=== PATIENT | male | born 1990 | race Caucasian/White ===

== ENCOUNTER 2017-07-06 18:57 | Emergency (ER) | payer MEDICAID, OTHER ==
[2017-07-06 19:03] VITALS: TEMP 97.9
[2017-07-06] MEDS ORDERED: NS 1,000 ML IV ONE (20:00)
--- NOTE | 2017-07-06 20:00 | EDPHY ---
H & P Time Seen by Provider: 07/06/17 19:23 HPI/ROS: CHIEF COMPLAINT: Alcohol intoxication HISTORY OF PRESENT ILLNESS: 26-year-old male presents emergency department via EMS. History is that he went to an AA meeting tonight intoxicated. EMS was called and transported the patient here. He can give me very little history. He told the nursing staff that his sister is in the ICU and that is why he is intoxicated tonight. He denies drug use. Denies any trauma. Reports nausea. Vomiting during the exam. REVIEW OF SYSTEMS: Complete review of systems is unobtainable from this patient because of alcohol intoxication. Patient denies any pain. Denies trauma. PAST MEDICAL HISTORY: Alcohol intoxication, history of MR . Bicuspid heart valve SOCIAL HISTORY: Smoker VITAL SIGNS: see nurse's notes. Noted to be hypoxic to the upper 70s when sleeping. GENERAL: Well-developed, well-nourished, arouses to voice. Able answer some simple questions. States "I don't know why I a here". HEENT: Normal, PERRL, 7mm bilaterally, EOMI, + nystagmus. No discharge or icterus, moist mucous membranes. Neck: supple, FROM. LUNGS: Clear to auscultation bilaterally, no wheezes, rhonchi or rales. CARDIAC: Regular rate and rhythm, no rubs, murmurs or gallops. ABDOMEN: Soft, nontender, nondistended, bowel sounds normal. BACK: No CVA tenderness. No vertebral tenderness. EXTREMITIES: No edema, FROM. NEURO: Somnolent but arousable. Grossly nonfocal exam. SKIN: Warm and dry, no rash. Smoking Status: Light smoker Constitutional: Initial Vital Signs Temperature (C) 36.6 C 07/06/17 19:00 Heart Rate 101 H 07/06/17 19:00 Respiratory Rate 20 07/06/17 19:00 Blood Pressure 148/105 H 07/06/17 19:00 O2 Sat (%) 99 07/06/17 19:00 O2 Delivery Mode Room Air Allergies/Adverse Reactions: tree nut [Nuts] Allergy (Severe, Verified 02/24/16 19:24) Anaphylaxis Home Medications: Medication Instructions Recorded Naltrexone HCl [Revia] 50 mg PO HS 01/17/16 buPROPion SR [Wellbutrin 150mg SR 150 mg PO DAILY 01/17/16 (*)] traZODone [traZODONE 50MG (*)] 50 mg PO HS PRN 01/17/16 Ibuprofen [Motrin (*)] 400 mg PO Q4 PRN #0 tab 01/19/16 Doxycycline Hyclate 100 mg PO BID #20 tab 02/22/16 Medical Decision Making ED Course/Re-evaluation: IV was placed and patient received normal saline as well as Zofran. Alcohol level is 372. Patient continued to sober while in the emergency department. He was re-evaluated at 10:30 p.m.: Patient is sleeping, no longer O2 dependent. Sats on room air 96%. Will continue to sober with the plan to discharge to the arc when able to ambulate. 1045: Patient was able to ambulate. He states he wants to leave, but he is unable to provide a number for a ride home. He is threatening to leave. The patient placed on the detained or until he is safe to be discharged, or is discharge to a sober individual, or is discharged to the arc. Patient was ambulatory with a steady gait and was discharged home the and over at 11:45 p.m. and was discharged to home at 11:45 p.m. Differential Diagnosis: After the history was obtained and physical exam performed, the following differential for the patient's altered mental status was considered included but was not limited to hypoglycemia, electrolyte disturbances, drug or alcohol intoxication, withdrawal symptoms. - Data Points Laboratory Results: Laboratory Results 07/06/17 20:23 07/06/17 20:23 07/06/17 07/06/17 20:23 20:23 WBC 9.19 10^3/uL 10^3/uL (3.80-9.50) RBC 5.51 10^6/uL 10^6/uL (4.40-6.38) Hgb 16.0 g/dL g/dL (13.7-17.5) Hct 47.5 % % (40.0-51.0) MCV 86.2 fL fL (81.5-99.8) MCH 29.0 pg pg (27.9-34.1) MCHC 33.7 g/dL g/dL (32.4-36.7) RDW 12.8 % % (11.5-15.2) Plt Count 220 10^3/uL 10^3/uL (150-400) MPV 9.7 fL fL (8.7-11.7) Neut % (Auto) 80.8 % H % (39.3-74.2) Lymph % (Auto) 14.8 % L % (15.0-45.0) [place] % (Auto) 2.7 % L % (4.5-13.0) Eos % (Auto) 0.5 % L % (0.6-7.6) Baso % (Auto) 0.8 % % (0.3-1.7) Nucleat RBC Rel Count 0.0 % % (0.0-0.2) Absolute Neuts (auto) 7.42 10^3/uL H 10^3/uL (1.70-6.50) Absolute Lymphs (auto) 1.36 10^3/uL 10^3/uL (1.00-3.00) Absolute Monos (auto) 0.25 10^3/uL L 10^3/uL (0.30-0.80) Absolute Eos (auto) 0.05 10^3/uL 10^3/uL (0.03-0.40) Absolute Basos (auto) 0.07 10^3/uL 10^3/uL (0.02-0.10) Absolute Nucleated RBC 0.00 10^3/uL 10^3/uL (0-0.01) Immature Gran % 0.4 % % (0.0-1.1) Immature Gran # 0.04 10^3/uL 10^3/uL (0.00-0.10) Sodium 144 mEq/L mEq/L (134-144) Potassium 4.1 mEq/L mEq/L (3.5-5.2) Chloride 107 mEq/L mEq/L (97-110) Carbon Dioxide 20 mEq/l L mEq/l (22-31) Anion Gap 17 mEq/L H mEq/L (8-16) BUN 13 mg/dL mg/dL (7-23) Creatinine 1.0 mg/dL mg/dL (0.7-1.3) Estimated GFR > 60 Glucose 90 mg/dL mg/dL (70-100) Calcium 9.9 mg/dL mg/dL (8.5-10.4) Ethyl Alcohol 372 mg/dL H mg/dL (0-10) Medications Given: Discontinued Medications Chlordiazepoxide (Librium 25 Mg Prepack#6) 1 btl TAKEHOME EDNOW ONE Stop: 07/06/17 23:09 Last Admin: 07/06/17 23:16 Dose: 1 btl Sodium Chloride (Ns) 1,000 mls @ 0 mls/hr IV ONCE ONE; Wide Open PRN Reason: Protocol Stop: 07/06/17 20:01 Last Admin: 07/06/17 20:26 Dose: 1,000 mls Ondansetron HCl (Zofran) 4 mg IVP EDNOW ONE Stop: 07/06/17 20:19 Last Admin: 07/06/17 20:27 Dose: 4 mg Ondansetron HCl (Zofran Odt) 4 mg PO EDNOW ONE Stop: 07/06/17 20:19 Last Admin: 07/06/17 20:27 Dose: 4 mg Departure - Departure Disposition: Home, Routine, Self-Care Clinical Impression: Alcoholic intoxication Qualifiers: Complication of substance-induced condition: uncomplicated Qualified Code(s): F10.920 - Alcohol use, unspecified with intoxication, uncomplicated Instructions: Alcohol Intoxication (ED) Additional Instructions: Please reduce your alcohol consumption. Referrals: NONE *PRIMARY CARE P,. [Primary Care Provider] - As per Instructions
[2017-07-06] MEDS ORDERED: ONDANSETRON 4 MG/2 ML VIAL ONE (20:06)
[2017-07-06] MEDS ORDERED: ONDANSETRON DISINTEGRATING 4 MG TAB ONE (20:18)
[2017-07-06] MEDS ORDERED: ONDANSETRON DISINTEGRATING 4 MG TAB PO ONE (20:18)
[2017-07-06] MEDS ORDERED: ONDANSETRON 4 MG/2 ML VIAL IVP ONE (20:18)
[2017-07-06 20:31] LABS: % IMMATURE GRANULYOCYTES 0.4 % (0.0-1.1); ABSOLUTE IMMATURE GRANULOCYTES 0.04 10^3/uL (0.00-0.10); ADD DIFF? NO; ADD MORPH? NO; ADD SCAN? NO; ATYPICAL LYMPHOCYTE FLAG 10 (0-99); FRAGMENT RBC FLAG 0 (0-99); HEMATOCRIT 47.5 % (40.0-51.0); LEFT SHIFT FLG 0 (0-99); LIPEMIA HEMOLYSIS FLAG 80 (0-99); MEAN CELL HEMOGLOBIN CONCENTR. 33.7 g/dL (32.4-36.7); MEAN CELL VOLUME 86.2 fL (81.5-99.8); MEAN PLATELET VOLUME 9.7 fL (8.7-11.7); PLATELET CLUMPS FLAG 10 (0-99); PLATELET COUNT 220 10^3/uL (150-400); RED BLOOD CELL COUNT 5.51 10^6/uL (4.40-6.38); RED CELL DISTRIBUTION WIDTH 12.8 % (11.5-15.2)
[2017-07-06 20:48] LABS: ANION GAP 17 mEq/L (8-16); CALCIUM 9.9 mg/dL (8.5-10.4); CARBON DIOXIDE 20 mEq/l (22-31); CHLORIDE 107 mEq/L (97-110); GLOMERULAR FILTRATION RATE > 60; GLUCOSE 90 mg/dL (70-100); POTASSIUM 4.1 mEq/L (3.5-5.2); SODIUM 144 mEq/L (134-144)
[2017-07-06 21:09] LABS: ETHANOL SERUM 372 mg/dL (0-10)
[2017-07-06] MEDS ORDERED: CHLORDIAZEPOXIDE 25MG PREPK#6 BTL TAKEHOME ONE (23:08)
[2017-07-06 23:57] VITALS: BP 115/57; PULSE 100; RESP 15; O2SAT 99
== END 2017-07-06 23:56 | disposition home or self-care (01) ==
LOC: EDUNIT#
DX: F10.920 Alcohol use, unspecified with intoxication, uncomplicated (principal); F17.200 Nicotine dependence, unspecified, uncomplicated; E86.9 Volume depletion, unspecified
CPT/HCPCS: 96374; G0480; J2405

== ENCOUNTER 2018-07-23 07:32 | Emergency (ER) | payer MEDICAID ==
[2018-07-23] MEDS: NS 1,000 ML IV ONE ×3 (08:09→09:24)
[2018-07-23 08:17] LABS: PLATELET COUNT 220 10^3/uL (150-400)
--- NOTE | 2018-07-23 08:26 | EDPHY ---
HPI/HX/ROS/PE/MDM Narrative: CHIEF COMPLAINT: Abdominal Pain HPI: This patient is a 27 year old male with history of ulcer several years ago. He has had similar abdominal pain to his prior ulcer for the past three weeks. His abdominal pain is primarily left-sided. During that time, he has had multiple episodes of hematemesis and hematochezia. Generally, his stools have been watery and ranging in color from green to brown. He does endorse episodes of black stool and also of bright blood with bowel movements. The patient reports this seems to be associated with his alcohol consumption, and that he drinks heavily fairly regularly. His last drink was yesterday evening. Today around 6am , he had an episode of bright blood in his stool and presents for evaluation. He endorses subjective fever and has felt warm and diaphoretic. In the past, his symptoms were relieved with antacids and he denies every undergoing endoscopy in the past. He endorses considerable stress recently as his sister one year ago from unknown causes. He denies chest pain, shortness of breath, urinary complaints, weakness, or other associated symptoms. REVIEW OF SYSTEMS: A comprehensive 10 system review of systems is otherwise negative aside from elements mentioned in the history of present illness and medical decision making. PMH: Ulcer. Alcoholism. SOCIAL HISTORY: Father at bedside. Employed. Lives in [place]. PHYSICAL EXAM: General:Patient is alert, in no acute distress. ENT:Eyes are normal to inspection. ENT inspection normal. Neck: Normal inspection. Full range of motion. Respiratory:No respiratory distress. Breath sounds normal bilaterally. Cardiovascular: Regular tachycardia, rate 110. Strong peripheral pulses. Normal cap refill. Abdomen: Left lower quadrant tenderness. There are no peritoneal signs. There are normal bowel sounds. Back: Normal to inspection. No tenderness to palpation. Skin: Normal color. No rash. Warm and dry. Extremities: Normal appearance. Full range of motion. Neuro: Oriented x3. Normal motor function. Normal sensory function. ED Course: 27 y/o male presents with gastrointestinal bleeding ongoing intermittently for three weeks. He has left lower quadrant abdominal tenderness on exam. IV established. Plan for labs including CBC, chemistries, liver, lipase, coag panel. The patient is mildly tachycardic. Plan to administer 2L IVF for symptom relief. Plan for x-ray of abdomen. Abdominal x-ray negative for acute processes. LFTs elevated. Anion gap high, consistent with dehydration. Laboratory studies otherwise largely unremarkable. 9:45 Reassessed. Discussed imaging and laboratory results. I offered admission for further GI workup. The patient declines and prefers to follow up in the outpatient setting. Plan to discharge home in good condition with referral to gastroenterology. He will continue taking omeprazole. I encouraged the patient to avoid alcohol. Return precautions discussed. The patient is comfortable with this plan. MDM: This patient presents with signs and symptoms of GI bleed. Other than alcoholism he is relatively healthy, and has a normal Hct and SBP. I do not think he requires emergent admission to the hospital, but I did offer this to him as a precaution. The patient states that he is in between insurance coverage, and declines any additional testing or admission. I explained that he does require urgent GI follow-up and have referred him to GI. Given his alcoholism, I suspect this likely might represent gastritis or possible ulcer. I think varices are less likely, and there is no evidence of pancreatitis. - Data Points Imaging Results: Imaging Impressions Abdomen X-Ray 07/23/18 08:48 Impression: 1. Nonspecific bowel gas pattern with moderate fluid-filled distention of the stomach. Imaging: I viewed and interpreted images myself Laboratory Results: Laboratory Results 07/23/18 08:00 07/23/18 08:00 07/23/18 07/23/18 07/23/18 08:00 08:00 08:00 WBC 3.50 10^3/uL L 10^3/uL (3.80-9.50) RBC 5.38 10^6/uL 10^6/uL (4.40-6.38) Hgb 16.2 g/dL g/dL (13.7-17.5) Hct 47.5 % % (40.0-51.0) MCV 88.3 fL fL (81.5-99.8) MCH 30.1 pg pg (27.9-34.1) MCHC 34.1 g/dL g/dL (32.4-36.7) RDW 15.4 % H % (11.5-15.2) Plt Count 220 10^3/uL 10^3/uL (150-400) MPV 8.9 fL fL (8.7-11.7) Neut % (Auto) 44.5 % % (39.3-74.2) Lymph % (Auto) 35.7 % % (15.0-45.0) [place] % (Auto) 16.0 % H % (4.5-13.0) Eos % (Auto) 0.6 % % (0.6-7.6) Baso % (Auto) 2.9 % H % (0.3-1.7) Nucleat RBC Rel Count 0.0 % % (0.0-0.2) Absolute Neuts (auto) 1.56 10^3/uL L 10^3/uL (1.70-6.50) Absolute Lymphs (auto) 1.25 10^3/uL 10^3/uL (1.00-3.00) Absolute Monos (auto) 0.56 10^3/uL 10^3/uL (0.30-0.80) Absolute Eos (auto) 0.02 10^3/uL L 10^3/uL (0.03-0.40) Absolute Basos (auto) 0.10 10^3/uL 10^3/uL (0.02-0.10) Absolute Nucleated RBC 0.00 10^3/uL 10^3/uL (0-0.01) Immature Gran % 0.3 % % (0.0-1.1) Immature Gran # 0.01 10^3/uL 10^3/uL (0.00-0.10) PT 13.0 SEC SEC (12.0-15.0) INR 0.96 (0.83-1.16) APTT 25.2 SEC SEC (23.0-38.0) Sodium 144 mEq/L mEq/L (135-145) Potassium 4.0 mEq/L mEq/L (3.3-5.0) Chloride 100 mEq/L mEq/L (97-110) Carbon Dioxide 16 mEq/l L mEq/l (22-31) Anion Gap 28 mEq/L H mEq/L (6-14) BUN 8 mg/dL mg/dL (7-23) Creatinine 0.9 mg/dL mg/dL (0.7-1.3) Estimated GFR > 60 Glucose 91 mg/dL mg/dL (70-100) Calcium 10.3 mg/dL mg/dL (8.5-10.4) Total Bilirubin 1.3 mg/dL mg/dL (0.1-1.4) Conjugated Bilirubin 0.3 mg/dL mg/dL (0.0-0.5) Unconjugated Bilirubin 1.0 mg/dL mg/dL (0.0-1.1) AST 119 IU/L H IU/L (17-59) ALT 105 IU/L H IU/L (21-72) Alkaline Phosphatase 97 IU/L IU/L (38-126) Total Protein 9.7 g/dL H g/dL (6.3-8.2) Albumin 5.6 g/dL H g/dL (3.5-5.0) Lipase 157 IU/L IU/L (23-300) Medications Given: Discontinued Medications Sodium Chloride (Ns) 1,000 mls @ 0 mls/hr IV ONCE ONE; Wide Open PRN Reason: Protocol Stop: 07/23/18 08:07 Last Admin: 07/23/18 09:22 Dose: 1,000 mls Sodium Chloride (Ns) 1,000 mls @ 0 mls/hr IV EDNOW ONE; Wide Open PRN Reason: Protocol Stop: 07/23/18 08:48 Last Admin: 07/23/18 09:24 Dose: 1,000 mls General Time Seen by Provider: 07/23/18 08:14 Initial Vital Signs: Initial Vital Signs Temperature (C) 36.6 C 07/23/18 07:35 Heart Rate 125 H 07/23/18 07:35 Respiratory Rate 20 07/23/18 07:35 Blood Pressure 153/113 H 07/23/18 07:35 O2 Sat (%) 94 07/23/18 07:35 O2 Delivery Mode Room Air Allergies/Adverse Reactions: tree nut [Nuts] Allergy (Severe, Verified 07/23/18 07:35) Anaphylaxis Home Medications: Medication Instructions Recorded NK [No Known Home Meds] 07/23/18 Departure - Departure Disposition: Home, Routine, Self-Care Clinical Impression: Abdominal pain, Gastritis, Alcoholism, GI bleed Condition: Good Instructions: Gastrointestinal Bleeding (ED), Acute Abdominal Pain (ED) Additional Instructions: 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 Follow up with your primary care provider in 2-3 days. Continue taking omeprazole as directed. Please avoid alcohol consumption. Return to the emergency department for fever, persistent vomiting or diarrhea, continued blood in your stool or vomit, fainting, weakness, increasing pain, or other worsening of condition. Referrals: Tamia Martinez MD [Primary Care Provider] - As per Instructions Edson Lerma MD [Medical Doctor] - As per Instructions Report Scribed for: Edson Kilpatrikc Report Scribed by: Martha Garcia Date of Report: 07/23/18 Time of Report: 10:02 Physician Review and Approval Statement: Portions of this note were transcribed by an ED scribe. I personally performed the history, physical exam, and medical decision making; and confirm the accuracy of the information in the transcribed note.
[2018-07-23 08:50] LABS: INR 0.96 (0.83-1.16)
[2018-07-23 10:04] VITALS: BP 145/78
== END 2018-07-23 10:04 | disposition home or self-care (01) ==
DX: K29.70 Gastritis, unspecified, without bleeding (principal); K92.2 Gastrointestinal hemorrhage, unspecified; F10.20 Alcohol dependence, uncomplicated; E86.9 Volume depletion, unspecified; R79.89 Other specified abnormal findings of blood chemistry

== ENCOUNTER 2018-12-14 18:28 | Emergency (ER) | payer BC ==
[2018-12-14] MEDS ORDERED: ONDANSETRON 4 MG/2 ML VIAL IVP ONE (19:00)
[2018-12-14] MEDS ORDERED: NS 1,000 ML IV ONE (19:00)
[2018-12-14] MEDS ORDERED: LORazepam 2 MG/ML INJ IVP ONE ×2 (19:01→19:45)
--- NOTE | 2018-12-14 19:03 | EDPHY ---
H & P Stated Complaint: In alcohol withdrawel, vomiting blood. Time Seen by Provider: 12/14/18 18:56 HPI/ROS: CHIEF COMPLAINT: Vomiting blood HISTORY OF PRESENT ILLNESS: The patient is a 28-year-old alcoholic man with a history of peptic ulcer disease and alcoholic gastritis who comes to the emergency department stating that he vomited blood about an hour ago. He states that he is having withdrawal symptoms which are commonly accompanied by nausea and vomiting. He states that this is not unusual for him but he was concerned because he had blood-tinged vomit about an hour ago. He does not feel lightheaded or dizzy. He states that he has had some dark stool. Severity: Moderate Modifying factors: None REVIEW OF SYSTEMS: Constitutional: denies: chills, fever, recent illness, recent injury EENTM: denies: blurred vision, double vision, nose congestion Respiratory: denies: cough, shortness of breath Cardiac: denies: chest pain, irregular heart rate, lightheadedness, palpitations Gastrointestinal/Abdominal: See HPI denies: abdominal pain, diarrhea, Genitourinary: denies: dysuria, frequency, hematuria, pain Musculoskeletal: denies: joint pain, muscle pain Skin: denies: lesions, rash, jaundice, bruising Neurological: denies: headache, numbness, paresthesia, tingling, dizziness, weakness Hematologic/Lymphatic: denies: blood clots, easy bleeding, easy bruising Immunologic/allergic: denies: HIV/AIDS, transplant 10 systems reviewed and negative except as noted EXAM: GENERAL: Well-appearing, well-nourished and in no acute distress. HEAD: Atraumatic, normocephalic. EYES: Pupils equal round and reactive to light, extraocular movements intact, sclera anicteric, conjunctiva are normal. ENT: TMs normal, nares patent, oropharynx clear without exudates. Moist mucous membranes. NECK: Normal range of motion, supple without lymphadenopathy or JVD. LUNGS: Breath sounds clear to auscultation bilaterally and equal. No wheezes rales or rhonchi. HEART: Regular rate and rhythm without murmurs, rubs or gallops. ABDOMEN: Soft, nontender, normoactive bowel sounds. No guarding, no rebound. No masses appreciated. : Rectal exam performed, grossly negative for blood. Will sent to the lab. BACK: No CVA tenderness, no spinal tenderness, step-offs or deformities EXTREMITIES: Normal range of motion, no pitting or edema. No clubbing or cyanosis. NEUROLOGICAL: Cranial nerves II through XII grossly intact. Normal speech, normal gait. 5/5 strength, normal movement in all extremities, normal sensation , normal reflexes PSYCH: Normal mood, normal affect. SKIN: Slightly pale, Warm, dry, normal turgor, no visible rashes or lesions. Source: Patient Exam Limitations: No limitations - Personal History Current Tetanus Diphtheria and Acellular Pertussis (TDAP): Yes Tetanus Vaccine Date: >5years - Medical/Surgical History Hx Asthma: No Hx Chronic Respiratory Disease: No Hx Diabetes: No Hx Cardiac Disease: Yes Hx Renal Disease: No Hx Cirrhosis: No Hx Alcoholism: Yes Hx HIV/AIDS: No Hx Splenectomy or Spleen Trauma: No Other PMH: In ETOH recovery program. Hx MSSA. Bicuspid heart valve instead of tricuspid-congenital. PCP Keshav Pineda. - Social History Smoking Status: Current every day smoker Alcohol Use: Heavy Constitutional: Initial Vital Signs Temperature (C) 36.9 C 12/14/18 18:34 Heart Rate 112 H 12/14/18 18:34 Respiratory Rate 18 12/14/18 18:34 Blood Pressure 126/77 H 12/14/18 18:34 O2 Sat (%) 100 12/14/18 18:34 O2 Delivery Mode Room Air Allergies/Adverse Reactions: tree nut [Nuts] Allergy (Severe, Verified 07/23/18 07:35) Anaphylaxis Home Medications: Medication Instructions Recorded Famotidine [Pepcid] 40 mg PO HS #30 tablet 12/14/18 Medical Decision Making ED Course/Re-evaluation: Patient had an episode of vomiting here just before receiving nausea medication. It was nonbloody. He is feeling better after Ativan and IV fluids. His blood counts are stable. His vital signs are stable. He does not wish to go to the alcohol recovery Center. He is tolerating p.o.. I will send him with [employer] XII. Will give him another dose of Ativan here. He states that he does wish to stop drinking but has tried multiple times. Differential Diagnosis: Partial list of the Differential diagnosis considered include but were not limited to; alcohol withdrawal, alcoholic gastritis, peptic ulcer disease and although unlikely based on the history and physical exam, I also considered gastric hemorrhage, infection, perforation. I discussed these differential diagnoses and the plan with the patient as well as the usual and expected course. The patient understands that the diagnosis is provisional and that in medicine we are not always correct and that further workup is often warranted. Usual and customary warnings were given. All of the patient's questions were answered. The patient was instructed to return to the emergency department should the symptoms at all worsen or return, otherwise to followup with the physician as we discussed. - Data Points Laboratory Results: Laboratory Results 12/14/18 19:12 12/14/18 19:12 Medications Given: Discontinued Medications Chlordiazepoxide (Librium 25 Mg Prepack#6) 1 btl TAKEHOME EDNOW ONE Stop: 12/14/18 19:47 Last Admin: 12/14/18 20:02 Dose: 1 btl Sodium Chloride (Ns) 1,000 mls @ 0 mls/hr IV EDNOW ONE; Wide Open PRN Reason: Protocol Stop: 12/14/18 19:01 Last Admin: 12/14/18 19:11 Dose: 1,000 mls Lorazepam (Ativan Injection) 1 mg IVP EDNOW ONE Stop: 12/14/18 19:02 Last Admin: 12/14/18 19:41 Dose: 1 mg Lorazepam (Ativan Injection) 1 mg IVP EDNOW ONE Stop: 12/14/18 19:46 Last Admin: 12/14/18 19:53 Dose: Not Given Ondansetron HCl (Zofran) 4 mg IVP EDNOW ONE Stop: 12/14/18 19:01 Last Admin: 12/14/18 19:30 Dose: 4 mg Pantoprazole Sodium (Protonix) 40 mg IVP EDNOW ONE Stop: 12/15/18 19:01 Last Admin: 12/14/18 19:28 Dose: 40 mg Departure - Departure Disposition: Home, Routine, Self-Care Clinical Impression: Alcoholic gastritis with bleeding Qualifiers: Chronicity: acute Qualified Code(s): K29.21 - Alcoholic gastritis with bleeding Alcohol withdrawal Qualifiers: Complication of substance-induced condition: uncomplicated Qualified Code(s): F10.230 - Alcohol dependence with withdrawal, uncomplicated Condition: Fair Instructions: Chlordiazepoxide (By mouth), Gastritis (ED), Alcohol Withdrawal ( ED) Referrals: Tamia Martinez MD [Primary Care Provider] - As per Instructions Prescriptions: Famotidine [Pepcid] 40 mg PO HS #30 tablet
[2018-12-14] MEDS ORDERED: PANTOPRAZOLE SODIUM 40 MG VIAL ONE (19:21)
[2018-12-14 19:32] LABS: PLATELET COUNT 190 10^3/uL (150-400)
[2018-12-14] MEDS ORDERED: CHLORDIAZEPOXIDE 25MG PREPK#6 BTL TAKEHOME ONE (19:46)
[2018-12-14 20:11] VITALS: BP 134/77
[2018-12-15] MEDS ORDERED: PANTOPRAZOLE SODIUM 40 MG VIAL IVP ONE (19:00)
== END 2018-12-14 20:11 | disposition home or self-care (01) ==
DX: K29.21 Alcoholic gastritis with bleeding (principal); E86.9 Volume depletion, unspecified; F10.10 Alcohol abuse, uncomplicated
CPT/HCPCS: 96374; J2060; J2405